=== PATIENT | male | born 1940 | race Caucasian/White ===

== ENCOUNTER → 2018-01-19 16:04 | Outpatient (CLI) | payer MEDICARE, OTHER, BC ==
[2015-05-08 12:48] VITALS: BMI 25.1
[~2018-01-19 16:04] MED LIST: FLINTSTONE1 TAB.CHEW PO; FLOMAX0.4 MG PO; LIPITOR10 MG PO; PLAVIX75 MG PO; PROSCAR5 MG PO; PROTONIX40 MG PO; SYNTHROID50 MCG PO
== END | disposition home or self-care (01) ==
LOC: D.CT 16:04
DX: R44.1 Visual hallucinations (principal)